=== PATIENT | male | born 1950 | race Caucasian/White ===

== ENCOUNTER 2017-08-30 08:35 | Day surgery (SDC) | payer MEDICARE, BC ==
[~2017-08-30 08:35] MED LIST: RINGER'S SOLUTION,LACTATED 1,000 ML IV PRN
[2017-08-30] MEDS ORDERED: RINGER'S SOLUTION,LACTATED 1,000 ML IV ONE (09:19)
[2017-08-30 11:35] VITALS: BP 135/64
== END 2017-08-30 08:36 | disposition home or self-care (01) ==
LOC: AMB 08:35
PROVIDERS: ATTEND Allergy & Immunology
PROC: 0BJ08ZZ Inspection of Tracheobronchial Tree, Via Natural or Artificial Opening Endoscopic (ICD-10-PCS; 2017-08-30)
PROC: 0DJ08ZZ Inspection of Upper Intestinal Tract, Via Natural or Artificial Opening Endoscopic (ICD-10-PCS; 2017-08-30)
PROC: 0CBS8ZX Excision of Larynx, Via Natural or Artificial Opening Endoscopic, Diagnostic (ICD-10-PCS; principal; 2017-08-30 10:10)
DX: C32.9 Malignant neoplasm of larynx, unspecified (principal); I10 Essential (primary) hypertension; E07.9 Disorder of thyroid, unspecified; Z87.891 Personal history of nicotine dependence; Z68.33 Body mass index [BMI] 33.0-33.9, adult

== ENCOUNTER 2017-10-01 11:42 | Day surgery (SDC) | payer MEDICARE, BC ==
[2017-10-01] MEDS ORDERED: RINGER'S SOLUTION,LACTATED 1,000 ML IV PRN (13:48)
[2017-10-01 14:52] VITALS: BP 168/68
--- NOTE | 2017-10-01 22:08 | OR ---
Operative Report - Dictated Report Narrative: OPERATIVE REPORT DATE OF OPERATION: 10/01/2017 PREOPERATIVE DIAGNOSIS: Abnormal uptake in the ascending colon on PET/CT. History of colon polyps POSTOPERATIVE DIAGNOSIS: Two 3mm cecal polyps (submitted as single specimen). 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 He was found to have abnormal uptake in the ascending colon on PET/CT and is referred for colonoscopy. He has a past history of colon polyps. FINDINGS: Two 3mm cecal polyps (submitted as single pathology specimen). 3 mm polyp at the hepatic flexure submitted separately NARRATIVE OF PROCEDURE: The patient was identified in the holding area, and prior to the administration of anesthetic, a multidisciplinary timeout was observed. With the patient in the left lateral position and after the administration of intravenous sedation, the perineum was inspected. There was no evidence of pilonidal disease or skin breakdown. The external appearance of the anus was normal. Sphincter tone was good. The flexible fiberoptic colonoscope was inserted into the rectum which was insufflated with air. The rectal mucosa and submucosal vascular pattern appeared normal, the prep was seen to be complete. The scope was advanced through the sigmoid colon, which contained several large non-impacted noninflamed diverticular openings. The scope was advanced up the descending colon, and around the splenic flexure where the triangular haustral architecture of the transverse colon was seen. The scope was advanced across the transverse colon, around the hepatic flexure to the cecum, where the confluence of tenia and the ileocecal valve were identified. There were two adjacent 3 mm polyps in the apex of the cecum. These were biopsied and then thoroughly destroyed with electrocautery. The samples were submitted in a single container. The mucosa at this level appeared otherwise normal. The scope was then slowly withdrawn in a circular fashion so that all aspects of colonic mucosa were inspected. There was a 3 mm polyp at the hepatic flexure. This was biopsied and then thoroughly destroyed with electrocautery. The site was seen to be completely hemostatic. The colon was slightly capacious and character and redundant and course. The haustral architecture appeared well preserved throughout with no evidence of external compression. The mucosa and submucosal vascular pattern appeared normal, specifically there was no gross evidence to suggest colitis or inflammatory bowel disease and no AV malformations were seen. Several scattered diverticula were noted in the sigmoid colon. No polyps were encountered. The scope was gradually withdrawn to the level of the rectum. As much insufflated air as possible was removed. The scope was withdrawn from the patient and the procedure terminated. The patient tolerated the anesthetic and procedure well without complication and was transferred back to the ambulatory surgery area awake and in stable condition. The patient remained stable throughout a period of postoperative observation. He denied abdominal discomfort, was able to tolerate by mouth intake, and was up without assistance. I shared the operative findings with the patient and he was given copies of the photographs which appear in the medical record. He was discharged home with instructions not to engage in hazardous activity today, but may resume normal activity tomorrow, and advance diet as tolerated. He is to continue those medications as listed in the history and physical exam. I made arrangements to contact him with the biopsy reports and will make additional recommendations for treatment and follow-up based upon those results. A pamphlet on diverticular disease was reviewed with him and given to him. He has been using MiraLAX and it was suggested he continue doing so the possible addition of Benefiber. Reviewed and electronically signed
== END 2017-10-01 11:43 | disposition home or self-care (01) ==
LOC: AMB 11:42
PROVIDERS: ATTEND Surgery
PROC: 0DBL8ZX Excision of Transverse Colon, Via Natural or Artificial Opening Endoscopic, Diagnostic (ICD-10-PCS; 2017-10-01)
PROC: 0DBH8ZX Excision of Cecum, Via Natural or Artificial Opening Endoscopic, Diagnostic (ICD-10-PCS; principal; 2017-10-01 12:55)
DX: Z12.11 Encounter for screening for malignant neoplasm of colon (principal); K63.5 Polyp of colon; I10 Essential (primary) hypertension; E03.9 Hypothyroidism, unspecified; E78.5 Hyperlipidemia, unspecified; Z87.891 Personal history of nicotine dependence; Z68.32 Body mass index [BMI] 32.0-32.9, adult